=== PATIENT | female | born 1990 | race Caucasian/White ===

== ENCOUNTER 2022-01-28 14:15 | Emergency (ER) | payer BC | END 2022-01-28 15:44 | disposition home or self-care (01) | LOC: MW.ED 14:15 | DX: I83.812 Varicose veins of left lower extremity with pain (principal); Z86.16 Personal history of COVID-19 | CPT/HCPCS: 93971-26-LT; 93971-LT; 99282; 99284-25 ==

== ENCOUNTER 2022-08-19 18:12 | Emergency (ER) | payer BC ==
[2022-08-19] MEDS ORDERED: Sodium Chloride 0.9% 10 ML Syringe FLUSH PRN (19:19)
[2022-08-19] MEDS ORDERED: Sodium Chloride 0.9% 2.5 ML Syringe FLUSH PRN (19:19)
[2022-08-19] MEDS ORDERED: Sodium Chloride 0.9% 1,000 ML IV ONE ×3 (19:19→20:01)
[2022-08-19] MEDS ORDERED: diphenhydrAMINE 50 MG/ML SDV IVPUSH ONE (19:51)
[2022-08-19] MEDS ORDERED: Dexamethasone 4 MG/ML SDV IVPUSH ONE (19:51)
[2022-08-19] MEDS ORDERED: Ketorolac 30 MG/ML SDV IVPUSH ONE (19:51)
[2022-08-19 19:57] LABS: CARBON DIOXIDE,CO2 23.9 mmol/L (21.0-32.0); POTASSIUM,K 4.1 mmol/L (3.5-5.1)
[2022-08-19 20:01] LABS: CORONAVIRUS COVID-19 NAA POSITIVE (NEGATIVE); INFLUENZA A NAA NEGATIVE (NEGATIVE); INFLUENZA B NAA NEGATIVE (NEGATIVE); RESPIRATORY SYNCYTIAL VIR NAA NEGATIVE (NEGATIVE)
[2022-08-19] MEDS ORDERED: Acetaminophen 325 MG Tab PO ONE (20:01)
[2022-08-19] MEDS ORDERED: Ondansetron 4 MG/2 ML SDV IVPUSH ONE (20:01)
== END 2022-08-19 21:31 | disposition home or self-care (01) ==
LOC: MW.ED 18:12
DX: O98.513 Other viral diseases complicating pregnancy, third trimester (principal); U07.1 COVID-19; O99.283 Endocrine, nutritional and metabolic diseases complicating pregnancy, third trimester; E86.0 Dehydration; Z3A.36 36 weeks gestation of pregnancy
CPT/HCPCS: 0241U; 36415; 80053; 85025; 96361; 96374; 96375; 99283; A9270; J2405; J3490; J7030

== ENCOUNTER 2022-09-01 08:00 | Inpatient (IN) | payer BC ==
[2022-09-01] MEDS: Lactated Ringers 1,000 ML IV SCH ×2 (08:00→08:41)
[2022-09-01] MEDS ORDERED: Carboprost Tromethamine 250 MCG/1 ML Amp IM PRN (08:04)
[2022-09-01] MEDS ORDERED: Sodium Chloride 0.9% 2.5 ML Syringe FLUSH PRN (08:04)
[2022-09-01] MEDS ORDERED: Lidocaine 1% 50 ML MDV INJECT PRN (08:04)
[2022-09-01] MEDS ORDERED: Butorphanol 1 MG/ML SDV IVPUSH PRN (08:04)
[2022-09-01] MEDS ORDERED: Tranexamic Acid 1,000 MG in Sodium Chloride 0.9% 100 ML IV PRN (08:04)
[2022-09-01] MEDS ORDERED: Methylergonovine 0.2 MG/1 ML Amp IM PRN (08:04)
[2022-09-01] MEDS ORDERED: Sodium Chloride 0.9% 10 ML Syringe FLUSH PRN (08:04)
[2022-09-01] MEDS ORDERED: Misoprostol 200 MCG Tab PO PRN (08:04)
[2022-09-01] MEDS ORDERED: Water For Irrigation,Sterile 1,000 ML Container IRR PRN (08:04)
[2022-09-01] MEDS ORDERED: Sodium Chloride 0.9% 20 ML SDV IV PRN (08:04)
[2022-09-01] MEDS ORDERED: Ondansetron 4 MG/2 ML SDV IVPUSH PRN (08:04)
[2022-09-01] MEDS ORDERED: Oxytocin/0.9 % Sodium Chloride 30 UNIT/500 ML BAG IV SCH (08:15)
[2022-09-01] MEDS ORDERED: Witch Hazel Medicated Pads 40/Jar TOP PRN (09:43)
[2022-09-01] MEDS ORDERED: Acetaminophen 500 MG Tab PO PRN (09:43)
[2022-09-01] MEDS ORDERED: Ibuprofen 400 MG Tab PO PRN (09:43)
[2022-09-01] MEDS ORDERED: Docusate Sodium 100 MG Cap PO PRN (09:43)
[2022-09-01] MEDS ORDERED: oxyCODONE 5 MG Tab PO PRN (09:43)
[2022-09-01] MEDS ORDERED: Benzocaine/Menthol 20%-0.5% Spray 78 GM Cannister TOP PRN (09:43)
[2022-09-01] MEDS ORDERED: Lanolin 100% Cream 7 GM Tube TOP PRN (09:43)
[2022-09-01] MEDS ORDERED: Bisacodyl 10 MG Supp RECTAL PRN (09:43)
[2022-09-01] MEDS: Acetaminophen 500 MG Tab PO PRN (15:47)
[2022-09-01] MEDS: Ibuprofen 800 MG Tab PO PRN (20:55)
[2022-09-02] MEDS: Acetaminophen 500 MG Tab PO PRN (11:18)
[2022-09-02] MEDS: Ibuprofen 800 MG Tab PO PRN (11:19)
== END 2022-09-02 12:59 | disposition home or self-care (01) | DRG 560 ==
LOC: MW.OBCHECK 08:00 → MW.OB 08:04 → OBSVTOIN 09:43 → MW.OB 12:49
PROVIDERS: ADMIT Obstetrics & Gynecology; ATTEND Obstetrics & Gynecology
PROC: 3E0R3BZ Introduction of Anesthetic Agent into Spinal Canal, Percutaneous Approach (ICD-10-PCS; principal; 2022-09-01)
PROC: 00HU33Z Insertion of Infusion Device into Spinal Canal, Percutaneous Approach (ICD-10-PCS; 2022-09-01)
PROC: 10E0XZZ Delivery of Products of Conception, External Approach (ICD-10-PCS; 2022-09-01)
PROC: 10907ZC Drainage of Amniotic Fluid, Therapeutic from Products of Conception, Via Natural or Artificial Opening (ICD-10-PCS; 2022-09-01)
DX: O99.214 Obesity complicating childbirth (principal); Z37.0 Single live birth; Z3A.37 37 weeks gestation of pregnancy; Z86.16 Personal history of COVID-19
CPT/HCPCS: 01967; 36415; 51701; 59025; 59409; 82803; 85014; 85018; 85027; 86592; 86850; 86900; 86901; A9270-GY; J2590; J7120; U0002